=== PATIENT | female | born 1975 | race Caucasian/White ===

== ENCOUNTER 2019-11-02 11:38 | Emergency (ER) | payer SELFPAY ==
[2019-11-02] VITALS (10 sets, daily range): BP systolic 110–160; BP diastolic 74–89; PULSE 58–80; RESP 13–18; TEMP 36.5; O2SAT 95–100; BMI 24.2
--- NOTE | 2019-11-02 11:55 | XR_ITS ---
WS: [id number] Portable AP upright chest, 11/02/2019 Clinical Data: syncope Comparison: PA and lateral chest, 11/10/2015. Findings: No nodules, masses or effusions are seen. The heart is normal. The pulmonary vascularity is not increased. No pneumonia or pneumothorax is seen. XR/XR chest 1V portable [id number] Impression: Negative chest.
--- NOTE | 2019-11-02 11:55 | CTR_ITS ---
PROCEDURE INFORMATION: Exam: CT Head Without Contrast Exam date and time: 11/02/2019 1:07 PM Age: 44 years old Clinical indication: Pain; Headache; Additional info: Headache, syncope TECHNIQUE: Imaging protocol: Computed tomography of the head without contrast. Radiation optimization: All CT scans at this facility use at least one of these dose optimization techniques: automated exposure control; mA and/or kV adjustment per patient size (includes targeted exams where dose is matched to clinical indication); or iterative reconstruction. COMPARISON: CT head wo con* [id number] 07/27/2013 4:53 PM RADIATION DOSE METRICS: Total DLP (mGy-cm): 752.88 FINDINGS: Brain: No hemorrhage. Unremarkable white matter. No mass effect. Ventricles: Normal. No ventriculomegaly. Bones/joints: Unremarkable. No acute fracture. Sinuses: No acute sinusitis. Mastoid air cells: Unremarkable. Soft tissues: Unremarkable. CT/CT head wo con* [id number] IMPRESSION: No acute intracranial abnormality. Radiation Dose CTDIVOL = (mGy): DLP = 752.88 (mGy-cm)
--- NOTE | 2019-11-02 12:20 | W.ED.SYNCOPE ---
HPI - Syncope General: Chief Complaint: Syncope Stated Complaint: TRYING TO POO AND BECAME UNRESPONSIVE Time Seen by Provider: 11/02/19 11:47 History of Present Illness: HPI narrative: This patient is a 44-year-old female presenting today with a syncopal episode. Apparently she woke up this morning about 730 with a headache. She said otherwise she felt okay. She is on her menstrual period currently which she says is normal and on time. She does have a history of PCOS and is having left lower quadrant pain which she thinks is different from what she normally gets. She also has a history of fibroids which causes her pain sometimes. Shortly before coming to the ER she felt like she had to have a bowel movement and was sitting on the toilet. She said she was not straining particularly hard but became sweaty and disoriented. Her twin sister told her that she was unresponsive but apparently the patient never fell off the toilet or collapsed. According to her sister she was able to get her up and into the vehicle. The patient has no recollection of anything that happened between the time she went into the bathroom and sat on the toilet to when she was in the vehicle on the way here. She is sort of irritated to be here and feels like everyone is overreacting. She is never had anything exactly like this happen before. She did have an episode 1 time where she got confused and had trouble recognizing people. She was evaluated for that and told that it was due to high blood pressure. She has been on high blood pressure medicine in the past but currently is not after being told that she did not need it anymore. She still is complaining of a severe headache and abdominal pain. She still feels like she has to have a bowel movement. She denies any other medical problems. She does use albuterol and notes that she quit smoking in June. complaint: loss of consciousness, felt faint and almost passed out Onset (ago): minute(s) (Just prior to arrival) Prodromal symptoms: headache, diaphoresis and nausea/vomiting Injuries sustained associated with event: none Associated symptoms: Reports abdominal pain, headache(s) and lightheadedness; Deny fever(s) Treatments prior to arrival: none Review of Systems General: Reports: 10 or more systems reviewed and unremarkable except in HPI and below Const: Denies: fever(s), chills, fatigue or malaise Eyes: Denies: change in vision ENMT: Denies: odynophagia Card: Reports: lightheadedness Resp: Denies: dyspnea, productive cough or non-productive cough GI: Reports: abdominal pain and other (Left lower quadrant pain. Feeling like she has to have a bowel movement. She typically does not have regular bowel movements on a daily basis.) : Reports: other (Currently on her menstrual period. History of PCOS.); Denies: flank pain or difficulty voiding Musc: Denies: neck pain or back pain Skin/Breast: Denies: rash Neuro: Reports: headache(s) Shaheen/Lymph: Denies: easy bruising or easy bleeding PFSH ED PFSH: Social History (Updated 07/23/19 @ 15:04 by Radha Pickett LPN) Smoking and tobacco status: former smoker Quit status (tobacco): has quit using tobacco Former quit date comment: 3 days Alcohol intake: never Physical Exam Const: COMMON NORMALS: patient oriented x3, no limitations and alert GENERAL APPEARANCE: cooperative and in distress HENMT: HEAD & SCALP: normal to inspection FACE & SINUS: normal facial exam Eye: GENERAL EYE: appearance normal, both eyes and all related structures Neck/C-Spine: COMMON NORMALS: supple, no meningeal signs and no JVD Chest: COMMONS NORMALS: normal inspection of the chest Resp: COMMON NORMALS: normal respiratory effort, No use of accessory muscles and clear to auscultation bilaterally AUSCULTATION: clear to auscultation bilaterally Cardio: COMMON NORMALS: no JVD, regular rate, regular rhythm and No murmurs present (Cardio) RATE: regular rate RHYTHM: regular rhythm GI: COMMON NORMALS: Normal to inspection, nondistended, normoactive bowel sounds present and Soft to palpation INSPECTION: Yes normal to inspection AUSCULTATION: Yes normoactive bowel sounds PALPATION: Yes Soft to palpation and Yes Tenderness to palpation present (GI) (Mild, left lower quadrant) Details: LLQ Back/Pelvis: COMMON NORMALS: thoracic and lumbar spine normal to inspection Extremity: COMMON NORMALS: normal to inspection Neuro: COMMON NORMALS: patient oriented x3, moves all extremities, no focal motor deficits and no sensory deficits noted SENSORIUM/ORIENTATION: Yes alert MENINGEAL SIGNS: Yes no meningeal signs Psych: COMMON NORMALS: mental status grossly normal, cooperative and normal affect Skin: COMMON NORMALS: no rashes or lesions noted and turgor normal GENERAL SKIN EXAM: no rashes or lesions noted and turgor normal Course ED course: Patient continued to have some pain throughout her ED stay. CT of her head was negative and was done early enough to be an adequate rule out for subarachnoid hemorrhage. She continued to have left lower quadrant pain and after a CT did not reveal a cause for this she had a pelvic ultrasound. This also did not show any evidence of torsion or hemorrhagic cyst. It also did not show fibroid which the patient thought that she had. Her cardiac work-up was negative. Labs were otherwise unremarkable. We discussed that we have ruled out many serious diagnoses but cannot exactly identify what is causing her symptoms. We discussed that could be endometriosis and she has been told before that she probably has that. She will follow-up as an outpatient and will return to the ED if worse in any way. I am sending her home with some naproxen. Vital Signs: Vital signs: Vital Signs Temperature 97.7 F 11/02/19 11:45 Pulse Rate 61 11/02/19 17:50 Respiratory Rate 17 11/02/19 17:50 Blood Pressure 130/79 11/02/19 17:50 Pulse Oximetry 98 11/02/19 17:50 MDM - Syncope MDM Narrative: Medical decision making narrative: Syncope with bowel movement. Patient has left lower quadrant pain. Differential includes diverticulitis, vascular problems, APPRENTICE PAINTER HAND issues such as ovarian cyst or ovarian torsion. She also has headache related to her syncope. CT to rule out subarachnoid. Blood pressure was initially elevated but started to come down quickly and hopefully will not require treatment in the ED. Medicated for pain and nausea. Lab Data: Labs: Lab Results 11/02/19 11/02/19 11/02/19 Range/Units 12:20 12:20 12:20 WBC 14.1 H (4.0-10.0) 10^3/ uL RBC 4.70 (4.1-5.3) 10^6/u L Hgb 14.2 (11.5-15.3) g/dL Hct 42.7 (37.0-47.0) % MCV 90.9 (81-99) fL MCH 30.2 (28.0-34.0) pg MCHC 33.3 (30.0-36.0) g/dL RDW 12.5 (12.1-15.1) % Plt Count 371 (130-400) 10^3/c mm MPV 9.3 (7.4-10.4) fL Neut % (Auto) 82.0 % Lymph % (Auto) 11.5 % [place] % (Auto) 5.3 % Eos % (Auto) 0.5 % Baso % (Auto) 0.3 % Neut # (Auto) 11.53 H (1.8-7.7) 10^3/u L Lymph # (Auto) 1.6 (0.8-4.8) 10^3/u L [place] # (Auto) 0.7 (0.2-0.9) 10^3/u L Eos # (Auto) 0.1 (0.0-0.8) 10^3/u L Baso # (Auto) 0.0 (0.0-0.1) 10^3/u L Nucleated RBC % (a uto) 0 % Nucleated RBCs # 0.0 /100WBC Sodium 138 (136-145) mmol/L Potassium 4.1 (3.5-5.1) mmol/L Chloride 105 (98-107) mmol/L Carbon Dioxide 24 (22-29) mmol/L Anion Gap 13.1 (5-19) BUN 8 (6-20) mg/dL Creatinine 0.8 (0.5-0.9) mg/dL GFR Calculation 77.2 L (90-130) mL/min Glucose 105 (65-115) mg/dL Calculated Osmolal ity 282 L (285-295) mOsm/k g Lactate 2.0 (0.5-2.2) mmol/L Calcium 9.8 (8.5-10.5) mg/dL Total Bilirubin 0.2 (0.15-1.2) mg/dL AST 21 (0-32) U/L ALT 14 (0-33) U/L Alkaline Phosphata se 34 L (35-105) IU/L Troponin T Baselin e (0-10) ng/L Troponin T 120 Min [place] (0-10) ng/L Delta Troponin T (0-10) ABS# Total Protein 7.1 (6.6-8.7) g/dL Albumin 4.7 (3.5-5.2) g/dL Globulin 2.4 (1.3-4.6) g/dL Lipase 15 (13-60) U/L HCG, Qual (Negative) Urine Color (Yellow) Urine Appearance (CLEAR) Urine pH (5-7) Ur Specific Gravit y (1.005-1.030) Urine Protein (Negative) Urine Glucose (UA) (Normal) Urine Ketones (Negative) Urine Blood (Negative) Urine Nitrate (Negative) Urine Bilirubin (NEGATIVE) Urine Urobilinogen (Negative) mg/dL Ur Leukocyte Angela ase (Negative) Urine RBC (0-2) /hpf Urine WBC (0-5) /hpf Ur Squamous Epith Cells (0-5) Amorphous Sediment Urine Bacteria (NONE) Urine Mucus 11/02/19 11/02/19 11/02/19 Range/Units 12:20 12:20 13:02 WBC (4.0-10.0) 10^3/ uL RBC (4.1-5.3) 10^6/u L Hgb (11.5-15.3) g/dL Hct (37.0-47.0) % MCV (81-99) fL MCH (28.0-34.0) pg MCHC (30.0-36.0) g/dL RDW (12.1-15.1) % Plt Count (130-400) 10^3/c mm MPV (7.4-10.4) fL Neut % (Auto) % Lymph % (Auto) % [place] % (Auto) % Eos % (Auto) % Baso % (Auto) % Neut # (Auto) (1.8-7.7) 10^3/u L Lymph # (Auto) (0.8-4.8) 10^3/u L [place] # (Auto) (0.2-0.9) 10^3/u L Eos # (Auto) (0.0-0.8) 10^3/u L Baso # (Auto) (0.0-0.1) 10^3/u L Nucleated RBC % (a uto) % Nucleated RBCs # /100WBC Sodium (136-145) mmol/L Potassium (3.5-5.1) mmol/L Chloride (98-107) mmol/L Carbon Dioxide (22-29) mmol/L Anion Gap (5-19) BUN (6-20) mg/dL Creatinine (0.5-0.9) mg/dL GFR Calculation (90-130) mL/min Glucose (65-115) mg/dL Calculated Osmolal ity (285-295) mOsm/k g Lactate (0.5-2.2) mmol/L Calcium (8.5-10.5) mg/dL Total Bilirubin (0.15-1.2) mg/dL AST (0-32) U/L ALT (0-33) U/L Alkaline Phosphata se (35-105) IU/L Troponin T Baselin e 6 (0-10) ng/L Troponin T 120 Min [place] (0-10) ng/L Delta Troponin T (0-10) ABS# Total Protein (6.6-8.7) g/dL Albumin (3.5-5.2) g/dL Globulin (1.3-4.6) g/dL Lipase (13-60) U/L HCG, Qual Negative (Negative) Urine Color Yellow (Yellow) Urine Appearance Clear (CLEAR) Urine pH 5 (5-7) Ur Specific Gravit y 1.010 (1.005-1.030) Urine Protein Neg (Negative) Urine Glucose (UA) Norm (Normal) Urine Ketones Negative (Negative) Urine Blood 3+ H (Negative) Urine Nitrate Negative (Negative) Urine Bilirubin Neg (NEGATIVE) Urine Urobilinogen Neg (Negative) mg/dL Ur Leukocyte Angela ase Negative (Negative) Urine RBC 0-4 H (0-2) /hpf Urine WBC 0-4 H (0-5) /hpf Ur Squamous Epith Cells 0-4 H (0-5) Amorphous Sediment Not Reportable Urine Bacteria Trace (NONE) Urine Mucus 1+ 11/02/19 Range/Units 14:20 WBC (4.0-10.0) 10^3/ uL RBC (4.1-5.3) 10^6/u L Hgb (11.5-15.3) g/dL Hct (37.0-47.0) % MCV (81-99) fL MCH (28.0-34.0) pg MCHC (30.0-36.0) g/dL RDW (12.1-15.1) % Plt Count (130-400) 10^3/c mm MPV (7.4-10.4) fL Neut % (Auto) % Lymph % (Auto) % [place] % (Auto) % Eos % (Auto) % Baso % (Auto) % Neut # (Auto) (1.8-7.7) 10^3/u L Lymph # (Auto) (0.8-4.8) 10^3/u L [place] # (Auto) (0.2-0.9) 10^3/u L Eos # (Auto) (0.0-0.8) 10^3/u L Baso # (Auto) (0.0-0.1) 10^3/u L Nucleated RBC % (a uto) % Nucleated RBCs # /100WBC Sodium (136-145) mmol/L Potassium (3.5-5.1) mmol/L Chloride (98-107) mmol/L Carbon Dioxide (22-29) mmol/L Anion Gap (5-19) BUN (6-20) mg/dL Creatinine (0.5-0.9) mg/dL GFR Calculation (90-130) mL/min Glucose (65-115) mg/dL Calculated Osmolal ity (285-295) mOsm/k g Lactate (0.5-2.2) mmol/L Calcium (8.5-10.5) mg/dL Total Bilirubin (0.15-1.2) mg/dL AST (0-32) U/L ALT (0-33) U/L Alkaline Phosphata se (35-105) IU/L Troponin T Baselin e (0-10) ng/L Troponin T 120 Min [place] 6.00 (0-10) ng/L Delta Troponin T 0 (0-10) ABS# Total Protein (6.6-8.7) g/dL Albumin (3.5-5.2) g/dL Globulin (1.3-4.6) g/dL Lipase (13-60) U/L HCG, Qual (Negative) Urine Color (Yellow) Urine Appearance (CLEAR) Urine pH (5-7) Ur Specific Gravit y (1.005-1.030) Urine Protein (Negative) Urine Glucose (UA) (Normal) Urine Ketones (Negative) Urine Blood (Negative) Urine Nitrate (Negative) Urine Bilirubin (NEGATIVE) Urine Urobilinogen (Negative) mg/dL Ur Leukocyte Angela ase (Negative) Urine RBC (0-2) /hpf Urine WBC (0-5) /hpf Ur Squamous Epith Cells (0-5) Amorphous Sediment Urine Bacteria (NONE) Urine Mucus EKG Data^: EKG 1: EKG interpretation date: 11/02/19 EKG interpretation time: 13:41 Interpretation: Normal sinus rhythm with a rate of 66. Normal intervals and axis. No ST changes. Discharge Plan Discharge Patient Disposition: Home, Self-Care Clinical Impression: Vasovagal syncope, Acute left lower quadrant pain Condition: Stable Prescriptions: New naproxen 500 mg tablet 500 mg PO DAILY PRN (Reason: pain) Qty: 10 RF: 0 No Action albuterol sulfate [Ventolin HFA] 90 mcg/actuation HFA aerosol inhaler 2 puff INHALATION Q4H PRN (Reason: shortness of breath or wheezing) Qty: 18 RF: 2 Tylenol Arthritis Pain 650 mg Tablet Extended Release 650 mg PO Q12H PRN (Reason: Pain) RF: 0 Benadryl 25 mg Capsule 25 mg PO BEDTIME RF: 0 Discharge Orders: Discharge Order (Routine); Ordered 11/02/19 Ordered By: Jaqueline Carmona Referrals: Popeye Oconnor DO [Primary Care Provider] - Discharge Diet: Usual diet Discharge Activity: Resume usual activity Patient Instructions: Syncope (ED), Abdominal Pain (ED) Activity Restrictions/Additional Instructions: Make sure to drink plenty of fluids. Take the naproxen up to twice daily for pain. Return to the emergency department if further episodes of passing out, more severe pain, fever, vomiting. Follow-up with your primary care provider for further evaluation. Discharge Date/Time: 11/02/19 17:50 Coding Level of Care Code ED Transit Driver for Chg Fwd Exam Comprehensive
[2019-11-02 12:27] LABS: Basophils % 0.3 %; Eosinophils # 0.1 10^3/uL (0.0-0.8); Eosinophils % 0.5 %; Hematocrit 42.7 % (37.0-47.0); Hemoglobin 14.2 g/dL (11.5-15.3); Lymphocytes # 1.6 10^3/uL (0.8-4.8); Lymphocytes % 11.5 %; Mean Corpuscular HGB Conc 33.3 g/dL (30.0-36.0); Mean Corpuscular Hemoglobin 30.2 pg (28.0-34.0); Mean Corpuscular Volume 90.9 fL (81-99); Mean Platelet Volume 9.3 fL (7.4-10.4); Monocytes # 0.7 10^3/uL (0.2-0.9); Monocytes % 5.3 %; Neutrophils # 11.53 10^3/uL (1.8-7.7); Nucleated Red Blood Cells % 0 %; Platelet Count 371 10^3/cmm (130-400); Red Cell Distribution Width 12.5 % (12.1-15.1); White Blood Count 14.1 10^3/uL (4.0-10.0)
[2019-11-02 12:40] LABS: Alanine Aminotransferase 14 U/L (0-33); Albumin Level 4.7 g/dL (3.5-5.2); Alkaline Phosphatase 34 IU/L (35-105); Anion Gap 13.1 (5-19); Aspartate Amino Transferase 21 U/L (0-32); Blood Urea Nitrogen 8 mg/dL (6-20); Calcium 9.8 mg/dL (8.5-10.5); Carbon Dioxide 24 mmol/L (22-29); Chloride 105 mmol/L (98-107); Globulin 2.4 g/dL (1.3-4.6); Glomerular Filtration Rate 77.2 mL/min (90-130); Glucose 105 mg/dL (65-115); Lipase 15 U/L (13-60); Osmolality Calculated 282 mOsm/kg (285-295); Potassium 4.1 mmol/L (3.5-5.1); Sodium 138 mmol/L (136-145); Total Bilirubin 0.2 mg/dL (0.15-1.2); Total Protein 7.1 g/dL (6.6-8.7)
[2019-11-02 12:53] LABS: HCG, Serum Qual Negative (Negative)
--- NOTE | 2019-11-02 13:20 | ECG_ITS ---
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 Measurements Intervals [place] Rate: 66 P: 15 [place]: 145 QRS: 38 QRSD: 83 T: 17 QT: 406 QTc: 427 Interpretive Statements SINUS RHYTHM Compared to ECG 11/10/2015 22:08:26 No significant changes Electronically Signed On 11-02-2019 16:40:56 CDT by Nikhil Kahn M.D. [id number]
[2019-11-02 13:22] LABS: Add Urine Microscopic? YES; Bilirubin Urine Neg (NEGATIVE); Blood Urine 3+ (Negative); Glucose Urine UA Norm (Normal); Ketones Urine Negative (Negative); Leukocyte Esterase Urine Negative (Negative); Nitrate Urine Negative (Negative); Protein Urine Neg (Negative); Urine Appearance Clear (CLEAR); Urine Color Yellow (Yellow); Urobilinogen Urine Neg (Negative); pH Urine 5 (5-7)
[2019-11-02 13:24] LABS: Add Urine Culture? No; Bacteria Urine TRACE; Mucus Urine 1+; RBC Urine 0-4 /hpf (0-2); Squamous Epithelial Cell Urine 0-4 (0-5); WBC Urine 0-4 /hpf (0-5)
--- NOTE | 2019-11-02 13:39 | CTR_ITS ---
PROCEDURE INFORMATION: Exam: CT Abdomen And Pelvis With Contrast Exam date and time: 11/02/2019 1:58 PM Age: 44 years old Clinical indication: Abdominal pain; Acute; Prior surgery; Surgery date: 6+ months; Surgery type: ; Additional info: Abdominal pain, syncope TECHNIQUE: Imaging protocol: Computed tomography of the abdomen and pelvis with intravenous contrast. Radiation optimization: All CT scans at this facility use at least one of these dose optimization techniques: automated exposure control; mA and/or kV adjustment per patient size (includes targeted exams where dose is matched to clinical indication); or iterative reconstruction. Contrast material: Omnipaque; Contrast volume: 95 ml; Contrast route: INTRAVENOUS (IV); Other contrast: Oral; COMPARISON: CT abdomen pelvis w con* [id number] 11/10/2015 10:51 PM RADIATION DOSE METRICS: Total DLP (mGy-cm): 527.44 FINDINGS: Liver: Normal. No mass. Gallbladder and bile ducts: Normal. No calcified stones. No ductal dilation. Pancreas: Normal. No ductal dilation. Spleen: Normal. No splenomegaly. Adrenals: Normal. No mass. Kidneys and ureters: Horseshoe kidney. Mild bilateral extrarenal renal moiety pelviectasis, a normal variant. Stomach and bowel: Unremarkable. No obstruction. No mucosal thickening. Appendix: No evidence of appendicitis. Intraperitoneal space: Unremarkable. No free air. No significant fluid collection. Vasculature: Moderate abdominal aortic atherosclerotic calcification without aneurysm. The iliac arteries show mild bilateral atherosclerotic calcifications without evidence of aneurysm. Lymph nodes: No enlarged lymph nodes. Bladder: Unremarkable as visualized. Reproductive: Mild anterior lower uterine segment probable Caesarean section defect (series 601, image 39). Bones/joints: Unremarkable. No acute fracture. Soft tissues: A small paraumbilical hernia containing only abdominal fat is noted. CT/CT abdomen pelvis w con* [id number] IMPRESSION: 1. Horseshoe kidney. 2. No acute abdominal or pelvic abnormality identified. Radiation Dose CTDIVOL = (mGy): DLP = 527.44 (mGy-cm)
[2019-11-02 13:48] LABS: Troponin(5th) Baseline 6 ng/L (0-10)
[2019-11-02] MEDS: iohexol 300 mg/mL 100 mL Btl IV (14:10)
--- NOTE | 2019-11-02 14:19 | PC.NURSE ---
7patient returned from ct
[2019-11-02] MEDS: fentaNYL 50 mcg/mL INJ 2mL IVP ×2 (14:23→16:18)
[2019-11-02] MEDS: ondansetron 2 mg/ML SDV 2 mL 4 MG IVP ×2 (14:25→16:19)
[2019-11-02] MEDS: sodium chloride 0.9% 500 ML 999 ML IV (14:32)
[2019-11-02] MEDS: diphenhydrAMINE 50 mg/mL SDV 1mL 25 MG IVP (14:33)
[2019-11-02 14:40] LABS: Troponin 5 2HR Delta 0 ABS# (0-10)
--- NOTE | 2019-11-02 15:20 | ECG_ITS ---
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 Measurements Intervals [place] Rate: 56 P: 31 [place]: 145 QRS: 38 QRSD: 86 T: 19 QT: 443 QTc: 428 Interpretive Statements SINUS BRADYCARDIA Compared to ECG 11/02/2019 13:40:25 Sinus rhythm no longer present Electronically Signed On 11-02-2019 16:44:02 CDT by Nikhil Kahn M.D. [id number]
--- NOTE | 2019-11-02 15:21 | US_ITS ---
WS: [id number] ULTRASOUND PELVIS TECHNIQUE: Transabdominal and transvaginal. ULTRASOUND PELVIS TECHNIQUE: Transabdominal. CLINICAL INFORMATION: LLQ - possible ovarian torsion : No. COMPARISON: None. FINDINGS: Cervix measures 4.5 cm Uterus Orientation: Anteverted. Size: 10.10 cm x 5.5 cm x 4.1 cm. Masses: None. Cervix: 4.6 cm. Endometrium: Normal. Endometrium thickness: 0.5 cm. Adnexa: No evidence of ovarian torsion. Right ovary size: 2.1 cm x 2.3 cm x 1.3 cm. Right ovary volume: 3.4 ccm3. Left ovary size: 2.2 cm x 3.1 cm x 1.6 cm. Left ovary volume: 5.4 ccm3 Free fluid: None. Other findings: None. US/US pelvic with transvaginal IMPRESSION: 1. Both ovaries are normal in appearance with normal vascularity. No evidence of ovarian torsion. 2. Normal cervix. 3. Unremarkable uterus. Normal Endometrium measures 4.9 mm
== END 2019-11-02 17:50 | disposition home or self-care (01) ==
PROVIDERS: Emergency Provider Emergency Medicine; PCP Family Medicine
DX: R55 Syncope and collapse (principal); R10.32 Left lower quadrant pain; Z87.891 Personal history of nicotine dependence
CPT/HCPCS: 12345; 36415; 70450; 71045; 74177; 76830; 76856; 80053; 81001; 81003; 83605; 83690; 84484; 84703; 85025; 93005; 96374; 96375; 96376; 99283; 99284; J1200; J2405; J3010; J7040; Q9967

== ENCOUNTER → 2020-10-28 16:30 | Outpatient (BNVA) | payer BC, SELFPAY | PROVIDERS: PCP Family Medicine; Visit Provider Family Medicine | DX: S96.819A Strain of other specified muscles and tendons at ankle and foot level, unspecified foot, initial encounter (principal); W10.9XXA Fall (on) (from) unspecified stairs and steps, initial encounter | CPT/HCPCS: 73630 ==

== ENCOUNTER → 2023-12-16 10:56 | Outpatient (BNVA) | payer OTHER, SELFPAY | PROVIDERS: Visit Provider Family Medicine | DX: R32 Unspecified urinary incontinence (principal) | CPT/HCPCS: 80053; 80061; 84439; 84443; 85025 ==

== ENCOUNTER → 2024-01-27 15:20 | Outpatient (BNVA) | payer OTHER, SELFPAY | PROVIDERS: Visit Provider Nurse Practitioner | DX: S69.81XA Other specified injuries of right wrist, hand and finger(s), initial encounter (principal); S59.811A Other specified injuries right forearm, initial encounter; W54.0XXA Bitten by dog, initial encounter; M79.641 Pain in right hand; M79.631 Pain in right forearm | CPT/HCPCS: 73090; 73130 ==

== ENCOUNTER → 2024-04-27 11:44 | Outpatient (BNVA) | payer OTHER, SELFPAY | PROVIDERS: PCP Family Medicine; Visit Provider Family Medicine | DX: E03.9 Hypothyroidism, unspecified (principal) | CPT/HCPCS: 84439; 84443 ==

== ENCOUNTER 2024-05-26 16:02 | Outpatient (RCR) | payer OTHER, SELFPAY | END 2024-06-19 23:59 | disposition home or self-care (01) | LOC: SPT 16:02 | PROVIDERS: Visit Provider Family Medicine | DX: R32 Unspecified urinary incontinence (principal) | CPT/HCPCS: 97161 ==

== ENCOUNTER 2024-06-08 13:42 | Outpatient (CLI) | payer OTHER, SELFPAY ==
--- NOTE | 2024-06-08 13:40 | MM_ITS ---
WS: [id number] BILATERAL 3D TOMOSYNTHESIS DIGITAL SCREENING MAMMOGRAPHY WITH CAD CLINICAL INFORMATION: screening HISTORY: Screening mammogram. No current complaints. COMPARISON: Baseline TECHNIQUE: Bilateral CC and MLO views. FINDINGS: The breasts are composed of heterogeneous fibroglandular density tissue, which can limit the detection of small underlying mass lesions. Nodular breast tissue bilaterally. No suspicious mass, asymmetry, calcifications, or architectural distortion. No evidence of malignancy. MM/MM [facility] tomosynthesis [id number] IMPRESSION: DENSITY: The breasts are heterogeneously dense, which may obscure small masses. BI-RADS: 1 - Negative FOLLOW UP: 1 Year Follow-up Recommend return to annual screening mammography.
== END 2024-06-08 13:43 | disposition home or self-care (01) ==
LOC: RAD 13:44
PROVIDERS: PCP Family Medicine; Visit Provider Family Medicine
DX: Z12.31 Encounter for screening mammogram for malignant neoplasm of breast (principal); R92.333 Mammographic heterogeneous density, bilateral breasts; N63.20 Unspecified lump in the left breast, unspecified quadrant; N63.10 Unspecified lump in the right breast, unspecified quadrant
CPT/HCPCS: 77063; 77067

== ENCOUNTER → 2024-06-22 11:58 | Outpatient (BNVA) | payer OTHER, SELFPAY | PROVIDERS: PCP Family Medicine; Visit Provider Family Medicine | DX: E03.9 Hypothyroidism, unspecified (principal) | CPT/HCPCS: 84439; 84443 ==

== ENCOUNTER 2024-06-25 16:13 | Outpatient (RCR) | payer OTHER, SELFPAY | END 2024-07-20 23:59 | disposition home or self-care (01) | LOC: SPT 16:13 | PROVIDERS: PCP Family Medicine; Visit Provider Family Medicine | DX: R32 Unspecified urinary incontinence (principal) | CPT/HCPCS: 97110; 97530 ==

== ENCOUNTER 2024-07-21 06:00 | Outpatient (RCR) | payer OTHER, SELFPAY | END 2024-08-19 23:59 | disposition home or self-care (01) | LOC: SPT 06:00 | PROVIDERS: PCP Family Medicine; Visit Provider Family Medicine | DX: R32 Unspecified urinary incontinence (principal) | CPT/HCPCS: 97110; 97530 ==

== ENCOUNTER 2024-08-20 05:00 | Outpatient (RCR) | payer OTHER, SELFPAY | END 2024-09-19 23:59 | disposition home or self-care (01) | LOC: SPT 05:00 | PROVIDERS: PCP Family Medicine; Visit Provider Family Medicine | DX: R32 Unspecified urinary incontinence (principal) | CPT/HCPCS: 97110; 97530 ==

== ENCOUNTER → 2024-08-28 08:57 | Outpatient (BNVA) | payer OTHER, SELFPAY | PROVIDERS: PCP Family Medicine; Visit Provider Family Medicine | DX: E03.9 Hypothyroidism, unspecified (principal); N81.4 Uterovaginal prolapse, unspecified; R32 Unspecified urinary incontinence; L98.9 Disorder of the skin and subcutaneous tissue, unspecified; L91.8 Other hypertrophic disorders of the skin | CPT/HCPCS: 82672; 83001; 83002; 84144; 84439; 84443 ==

== ENCOUNTER 2024-09-20 06:30 | Outpatient (RCR) | payer OTHER, SELFPAY | END 2024-09-23 08:37 | disposition home or self-care (01) | LOC: SPT 06:30 | PROVIDERS: PCP Family Medicine; Visit Provider Family Medicine | DX: R32 Unspecified urinary incontinence (principal) | CPT/HCPCS: 97110 ==

== ENCOUNTER → 2024-11-10 15:44 | Outpatient (BNVA) | payer OTHER, SELFPAY | PROVIDERS: PCP Family Medicine; Visit Provider Nurse Practitioner Women's Health | DX: R61 Generalized hyperhidrosis (principal); R41.89 Other symptoms and signs involving cognitive functions and awareness; Z13.1 Encounter for screening for diabetes mellitus; R53.83 Other fatigue | CPT/HCPCS: 82306; 82728; 83036; 83540 ==

== ENCOUNTER → 2024-12-14 09:04 | Outpatient (BNVA) | payer OTHER, SELFPAY | PROVIDERS: PCP Family Medicine; Visit Provider Family Medicine | DX: E03.9 Hypothyroidism, unspecified (principal) | CPT/HCPCS: 84439; 84443 ==

== ENCOUNTER → 2025-03-08 14:14 | Outpatient (BNVA) | payer OTHER, SELFPAY | PROVIDERS: PCP Family Medicine; Visit Provider Nurse Practitioner Women's Health | DX: E03.9 Hypothyroidism, unspecified (principal) | CPT/HCPCS: 84439; 84443; 84481 ==